=== PATIENT | male | born 1995 | race Caucasian/White ===

== ENCOUNTER 2016-08-18 15:15 | Emergency (ER) | payer OTHER ==
[~2016-08-18] VITALS: Ht 175.3 cm; Wt 100.0 kg
[~2016-08-18 15:15] MED LIST: NOHOMEMEDS
[2016-08-18 16:21] LABS: EOSINOPHIL (%) 0.2 % (0-5); IMMATURE GRANULOCYTE (%) 0.2 % (0.0-0.7); IMMATURE GRANULOCYTE COUNT 0.2 K/uL; LYMPHOCYTE COUNT 3.2 K/uL (1.0-2.8); MCH 29.9 PG (29.0-34.0); MCHC 35.7 G/DL (30.0-36.0); MCV 83.8 FL (86-99); MEAN PLAT.VOLUME 9.7 uM^3 (9.0-12.4); MONOCYTE (%) 10.4 % (3-12); MONOCYTE COUNT 1.1 K/uL (0-0.8); NEUTROPHIL (%) 59.9 % (45-76); NEUTROPHIL COUNT 6.6 K/uL (1.8-6.4); PLATELET COUNT 274 K/uL (156-360); RBC DIS.WIDTH-CV 12.3 % (11.8-14.6); RBC DIS.WIDTH-SD 37.1 % (39-53); RED BLOOD COUNT 5.25 M/uL (4.00-5.50)
[2016-08-18 16:40] LABS: CHLORIDE 106 mEq/L (99-109); POTASSIUM 3.4 mEq/L (3.7-5.4); SODIUM 142 mEq/L (136-147)
[2016-08-18 16:42] LABS: GLUCOSE 96 mg/dL (70-99)
[2016-08-18 16:43] LABS: ANION GAP 11 MEQ/L (2-14)
[2016-08-18 16:44] LABS: TOTAL BILIRUBIN 0.4 mg/dL (0.0-1.0)
[2016-08-18 16:45] LABS: ALKALINE PHOSPHATASE 71 IU/L (3-129)
[2016-08-18 16:46] LABS: GFR ESTIMATE (CALCULATED) > 59 mL/min/
[2016-08-18 16:47] LABS: DIRECT BILIRUBIN 0.2 mg/dL (0.0-0.3); UREA NITROGEN (BUN) 17 mg/dL (9-23)
[2016-08-18 18:01] VITALS: BP 125/68
[2016-08-19 12:38] LABS: HEPATITIS B SURFACE ANTIBODY REACTIVE; HIV INDEX 0.06; HIV-1/2 AB/AG COMBO Nonreactive
== END 2016-08-18 18:01 | disposition home or self-care (01) ==
LOC: EME → EDBD 15:15 → EME 18:01
PROVIDERS: Physician Assistant
DX: Z77.21 Contact with and (suspected) exposure to potentially hazardous body fluids (principal); Y99.0 Civilian activity done for income or pay
CPT/HCPCS: 80048; 80076; 85025; 86703; 86706; 86803; 99281; 99283